=== PATIENT | female | born 1975 ===

== ENCOUNTER 2022-01-14 07:45 | Outpatient (CLI) | payer OTHER | END 2022-01-14 07:48 | disposition home or self-care (01) | LOC: SONOGRAMA 07:45 → EDBD 07:45 → SONOGRAMA 07:48 | PROVIDERS: ATTEND Pathology Anatomic Pathology & Clinical Pathology | DX: E04.8 Other specified nontoxic goiter (principal) ==

== ENCOUNTER 2024-04-05 08:35 | Outpatient (CLI) | payer OTHER | END 2024-04-05 08:38 | disposition home or self-care (01) | LOC: SONOGRAMA 08:35 | PROVIDERS: ATTEND Pathology Anatomic Pathology | DX: D34 Benign neoplasm of thyroid gland (principal); E07.89 Other specified disorders of thyroid; E04.8 Other specified nontoxic goiter ==